=== PATIENT | female | born 1980 | race Caucasian/White ===

== ENCOUNTER 2024-02-15 07:56 | Emergency (ER) | payer OTHER ==
[2024-02-15] MEDS ORDERED: Lidocaine 1% PF 5 ML VIAL ONE (08:14)
[2024-02-15] MEDS ORDERED: Boostrix 0.5 ML (Tdap) VIAL (>/=7 yrs of age) ONE (08:40)
[2024-02-15] MEDS ORDERED: Bacitracin 1 PK ONE (08:40)
== END 2024-02-15 08:45 | disposition home or self-care (01) ==
LOC: ERS 07:56
DX: S91.112A Laceration without foreign body of left great toe without damage to nail, initial encounter (principal); F17.210 Nicotine dependence, cigarettes, uncomplicated; W26.8XXA Contact with other sharp object(s), not elsewhere classified, initial encounter; Z23 Encounter for immunization
CPT/HCPCS: 12002; 90471; 90715

== ENCOUNTER 2025-04-14 07:52 | Emergency (ER) | payer OTHER | END 2025-04-14 08:35 | disposition home or self-care (01) | LOC: ERS 07:52 | DX: S39.012A Strain of muscle, fascia and tendon of lower back, initial encounter (principal); F17.210 Nicotine dependence, cigarettes, uncomplicated; V43.52XA Car driver injured in collision with other type car in traffic accident, initial encounter | CPT/HCPCS: 99283 ==